=== PATIENT | male | born 1980 | race African-American/Black ===

== ENCOUNTER → 2016-11-01 | Outpatient (CLI) | payer OTHER ==
--- NOTE | 2016-11-01 11:31 | REP ---
Chest x-ray: Two views. History: Pulled muscle and cough. . Comparison study: No comparison study . Findings: The lungs are well inflated and free of infiltrate. The pleural angles are sharp. The heart size is normal. Pulmonary vasculature is not increased. No significant bony abnormality is seen. Impression: Negative chest x-ray. Signed by Saleem Castañeda MD 11/01/2016 09:34 A
--- NOTE | 2016-11-01 13:22 | REP ---
SACRUM AND COCCYX SERIES: THE THREE VIEWS. HISTORY: Tail bone pain. FINDINGS: There is degenerative disc narrowing at L4-5 with anterior early spurring. 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 The sacrum and coccyx otherwise appear intact. No displacement or presacral swelling seen. IMPRESSION: No sacral or coccygeal abnormality noted. Transitionalized lumbosacral junction and mild degenerative disc narrowing at L4-5. Signed by Saleem Castañeda MD 11/01/2016 01:26 P
== END ==
LOC: M LRY 08:41
PROVIDERS: ATTEND Family Medicine
DX: M53.3 Sacrococcygeal disorders, not elsewhere classified (principal); T14.8 Other injury of unspecified body region; R05 Cough
CPT/HCPCS: 71020; 72220; 80053; 80061; 85027; G0463

== ENCOUNTER → 2016-11-01 | Outpatient (REF) | payer OTHER ==
[2016-11-01 11:05] LABS: MEAN CORPUSCULAR HGB CONC 31.9 g/dl (32.0-36.5); MEAN CORPUSCULAR VOLUME 87.7 fl (80.0-96.0); RED CELL DISTRIBUTION WIDTH 11.9 % (11.5-14.5); WHITE BLOOD COUNT 5.4 K/mm3 (4.0-10.0)
[2016-11-01 11:21] LABS: ALBUMIN/GLOBULIN RATIO 1.03 (1.00-1.93); ALKALINE PHOSPHATASE 96 U/L (45-117); ALT/SGPT 67 U/L (12-78); ANION GAP 6 MEQ/L (8-16); AST/SGOT 30 U/L (15-37); BILIRUBIN,TOTAL 0.4 MG/DL (0.2-1.0); BLOOD UREA NITROGEN 18 MG/DL (7-18); CALCIUM LEVEL 9.1 MG/DL (8.5-10.1); CARBON DIOXIDE LEVEL 32 MEQ/L (21-32); CHLORIDE LEVEL 105 MEQ/L (98-107); CHOLESTEROL LEVEL 233 MG/DL (<200); CREATININE FOR GFR 1.19 MG/DL (0.70-1.30); GLOMERULAR FILTRATION RATE > 60.0 (>60); GLUCOSE, FASTING 79 MG/DL (70-105); POTASSIUM SERUM 4.2 MEQ/L (3.5-5.1); SODIUM LEVEL 143 MEQ/L (136-145); TOTAL PROTEIN 7.9 GM/DL (6.4-8.2); TRIGLYCERIDES LEVEL 183 MG/DL (<150)
== END ==
LOC: M SFHCLERA 08:33
PROVIDERS: ATTEND Family Medicine
DX: E66.3 Overweight (principal); Z83.3 Family history of diabetes mellitus; R05 Cough

== ENCOUNTER 2024-10-17 11:30 | Day surgery (SDC) | payer OTHER ==
[~2024-10-17] VITALS: Ht 167.6 cm; Wt 75.2 kg
[2024-10-17 13:33] LABS: BASO % 0.3 % (0.0-1.0); EOS % 0.3 % (0.0-3.0); HEMATOCRIT 51.5 % (42.0-52.0); HEMOGLOBIN 16.7 g/dl (13.5-17.5); LYMPH # 1.1 10^3/uL (1.5-5.0); LYMPH % 10.5 % (24.0-44.0); MEAN CORPUSCULAR HEMOGLOBIN 28.2 pg (27.0-33.0); MEAN CORPUSCULAR HGB CONC 32.4 g/dl (32.0-36.5); MEAN CORPUSCULAR VOLUME 86.8 fl (80.0-96.0); MONO # 0.5 10^3/uL (0.0-0.8); MONO % 4.4 % (2.0-8.0); NEUTROPHILS # 8.8 10^3/uL (1.5-8.5); NEUTROPHILS % 84.2 % (36.0-66.0); PLATELET COUNT, AUTOMATED 215 10^3/uL (150-450); RED BLOOD COUNT 5.93 10^6/uL (4.30-6.10); WHITE BLOOD COUNT 10.4 10^3/uL (4.0-10.0)
[2024-10-17 13:47] LABS: BLOOD UREA NITROGEN 17 MG/DL (9-23); CALCIUM LEVEL 9.9 MG/DL (8.5-10.1); CARBON DIOXIDE LEVEL 27 MMOL/L (20-31); CHLORIDE LEVEL 103 MMOL/L (98-107); CREATININE FOR GFR 0.91 MG/DL (0.70-1.30); GLOMERULAR FILTRATION RATE > 60.0 (>60); GLUCOSE, FASTING 101 MG/DL (60-100); POTASSIUM SERUM 4.8 MMOL/L (3.5-5.1); SODIUM LEVEL 139 MMOL/L (136-145)
[2024-10-17] MEDS: MORPHINE 2 MG/ML 1ML VIAL IV ONE (13:51)
[2024-10-17] MEDS: MORPHINE 4 MG/ML 1ML VIAL IV ONE (15:52)
[2024-10-17] MEDS ORDERED: MIDAZOLAM INJ 2MG/2ML VIAL As Ordered ONE (18:28)
[2024-10-17] MEDS ORDERED: fentaNYL 100 MCG/2 ML INJECTION As Ordered ONE (18:29)
[2024-10-17] MEDS ORDERED: LIDOCAINE 2% 100MG/5ML SDV (FOR ANES.) As Ordered ONE (18:30)
[2024-10-17] MEDS ORDERED: ONDANSETRON 4MG 2ML VIAL As Ordered ONE (18:30)
[2024-10-17] MEDS ORDERED: propofoL 200 MG/20 ML VIAL As Ordered ONE (18:30)
[2024-10-17] MEDS ORDERED: ROCURONIUM BROMIDE 50MG/5ML VIAL As Ordered ONE (18:30)
[2024-10-17] MEDS: LIDOCAINE 1% SDV 30ML VIAL As Ordered ONE (18:46)
[2024-10-17] MEDS: ceFAZolin 2 GM/D5W 50 ML IV BAG As Ordered ONE (19:03)
[2024-10-17] MEDS ORDERED: KETOROLAC 60MG 2ML VIAL As Ordered ONE (19:27)
[2024-10-17] MEDS ORDERED: ACETAMINOPHEN 1000MG/100ML IV BAG As Ordered ONE (19:28)
[2024-10-17] MEDS ORDERED: dexmedeTOMIDine (4MCG/ML)200MCG/50ML BTL (PRECEDEX) As Ordered ONE (19:28)
[2024-10-17] MEDS ORDERED: IBUP200T46 PO (19:33)
[2024-10-17] MEDS ORDERED: SUGAMMADEX SODIUM 500 MG/5 ML VIAL (BRIDION) As Ordered ONE (19:35)
[2024-10-17] MEDS ORDERED: HOME MED LIST COMPLETE! XX SCH (19:35)
[2024-10-17] MEDS ORDERED: LABETALOL 100MG/20ML VIAL As Ordered ONE (19:49)
[2024-10-17] MEDS ORDERED: NORCO, ANEXSIA 5/325MG TABLET (HYDROcodone/ACETAMINOPHEN) PO PRN (20:55)
[2024-10-17] MEDS ORDERED: ONDANSETRON 4MG 2ML VIAL IV PRN (20:55)
[2024-10-17 22:00] VITALS: BP 124/84; TEMP 97.2; O2SAT 100
[2024-10-17] MEDS: LR 1,000 ML IV SCH (22:17)
[2024-10-17] MEDS: SENOKOT S TAB PO SCH (22:21)
[2024-10-17 22:30] VITALS: BP 128/85; TEMP 97.1; O2SAT 96
[2024-10-17 23:00] VITALS: BP 128/84; TEMP 97.5; O2SAT 95
[2024-10-18] VITALS: BP 127/89; TEMP 97.9; O2SAT 95
[2024-10-18] MEDS: NORCO, ANEXSIA 5/325MG TABLET (HYDROcodone/ACETAMINOPHEN) PO PRN (00:05)
[2024-10-18 01:00] VITALS: BP 116/73; TEMP 97.3; O2SAT 95
[2024-10-18] MEDS: KETOROLAC 30 MG/ML 1ML VIAL IV SCH (02:10)
[2024-10-18 04:00] VITALS: BP 109/70; TEMP 98.1; O2SAT 95
[2024-10-18] MEDS: ceFAZolin SOD 1 GM in DEXTROSE 5% (D5W) ADV/MINI-BAG 50 ML IV SCH (04:39)
[2024-10-18 06:44] LABS: BASO % 0.3 % (0.0-1.0); HEMATOCRIT 43.1 % (42.0-52.0); LYMPH # 1.3 10^3/uL (1.5-5.0); LYMPH % 13.2 % (24.0-44.0); MEAN CORPUSCULAR HEMOGLOBIN 27.9 pg (27.0-33.0); MEAN CORPUSCULAR HGB CONC 32.9 g/dl (32.0-36.5); MEAN CORPUSCULAR VOLUME 84.7 fl (80.0-96.0); MONO # 0.7 10^3/uL (0.0-0.8); NEUTROPHILS # 7.6 10^3/uL (1.5-8.5); NEUTROPHILS % 79.2 % (36.0-66.0); PLATELET COUNT, AUTOMATED 191 10^3/uL (150-450); RED BLOOD COUNT 5.09 10^6/uL (4.30-6.10); WHITE BLOOD COUNT 9.6 10^3/uL (4.0-10.0)
[2024-10-18 07:00] VITALS: BP 114/69; TEMP 97.7; O2SAT 97
[2024-10-18 07:05] LABS: HEMOGLOBIN 14.2 g/dl (13.5-17.5)
[2024-10-18 08:12] LABS: BLOOD UREA NITROGEN 16 MG/DL (9-23); CALCIUM LEVEL 8.7 MG/DL (8.5-10.1); CARBON DIOXIDE LEVEL 28 MMOL/L (20-31); CHLORIDE LEVEL 101 MMOL/L (98-107); GLOMERULAR FILTRATION RATE > 60.0 (>60); GLUCOSE, FASTING 111 MG/DL (60-100); POTASSIUM SERUM 4.5 MMOL/L (3.5-5.1); SODIUM LEVEL 138 MMOL/L (136-145)
[2024-10-18 12:00] VITALS: BP 136/80; TEMP 97.7
[2024-10-18] MEDS ORDERED: HYDR-3715 PO (13:54)
== END 2024-10-18 15:15 | disposition home or self-care (01) ==
LOC: M ED 11:30 → M SDC 11:31 → UNDOADMOB 22:01 → M MS5PR 22:01 → M SDC 10-18 15:15 → UNDODISOB 10-18 15:15
PROVIDERS: ATTEND Surgery
DX: K40.30 Unilateral inguinal hernia, with obstruction, without gangrene, not specified as recurrent (principal); K56.600 Partial intestinal obstruction, unspecified as to cause; D17.6 Benign lipomatous neoplasm of spermatic cord
CPT/HCPCS: 36415; 49507; 76857; 80048; 83605; 85025; 96361; 96374; 96375; 96376; 99284; C1781; J0131; J0665; J0690; J1100; J1885; J1920; J2250; J2405; J3010; S2900